=== PATIENT | female | born 1965 | race African-American/Black ===

== ENCOUNTER 2023-03-29 09:50 | Emergency (ER) | payer OTHER ==
[~2023-03-29] VITALS: Ht 160 cm; Wt 102.1 kg
[2023-03-29 10:02] VITALS: BP 126/93
--- NOTE | 2023-03-29 10:15 | NUR ---
57 Y/O FEMALE BIB SELF, C/O SORE THROAT SINCE THIS MORNING. PT DENIES N/V/D; SKIN IS INTACT, PINK/WARM/DRY; AAOX4, PERRL, WITH EVEN AND STEADY GAIT; LUNGS CLEAR BL, BREATHING UNLABORED; HR EVEN AND REGULAR. VSS; PATIENT POSITIONED FOR COMFORT; HOB ELEVATED; BEDRAILS UP X2; BED DOWN.
[2023-03-29 10:18] VITALS: BP 126/93
--- NOTE | 2023-03-29 10:18 | NUR ---
Patient discharged with v/s stable. Written and verbal after care instructions given and explained. Patient verbalized understanding. Ambulatory with steady gait. All questions addressed prior to discharge. Advised to follow up with PMD. work note given
== END 2023-03-29 10:18 | disposition home or self-care (01) ==
LOC: MED 09:50
DX: J02.9 Acute pharyngitis, unspecified (principal)
CPT/HCPCS: 99281